=== PATIENT | female | born 1990 | race Caucasian/White ===

== ENCOUNTER 2019-07-08 19:56 | Emergency (ER) | payer OTHER ==
[2019-07-08 20:46] LABS: #Eosinphils 0.1 thou/uL (0.0-0.7); #Lymphocytes 1.8 thou/uL (1.20-3.40); #Monocytes 0.4 thou/uL (0.11-0.59); %Basophils 0.6 % (0.0-1.0); %Eosinophils 1.1 % (0.0-10.0); %Lymphocytes 24.8 % (21.0-51.0); %Monocytes 5.7 % (0.0-10.0); %Neutrophils 67.9 % (42.0-75.0); Hemoglobin 12.4 g/dL (12.0-16.0); Mean Corpuscular HGB CONC 35.6 g/dL (32.0-36.0); Mean Corpuscular Hemoglobin 31.8 pg (27.0-31.0); Mean Corpuscular Volume 89.4 fL (78.0-98.0); Platelet Count 185 thou/uL (130-400); RBC Distribution Width 13.6 % (11.5-14.5); Red Blood Cell (RBC) Count 3.88 mill/uL (4.20-5.40); White Blood Cell (WBC) Count 7.3 thou/uL (4.8-10.8)
[2019-07-08 21:05] LABS: ALT (SGPT) 15 U/L (8-55); AST (SGOT) 22 U/L (5-34); Albumin 3.6 g/dL (3.5-5.0); Alkaline Phosphatase 54 U/L (40-150); Anion Gap 12 mmol/L (10-20); BUN (Urea Nitrogen) 7 mg/dL (7.0-18.7); Bilirubin, Total 0.3 mg/dL (0.2-1.2); Calc. Creatinine Clearance 0 mL/min (70-130); Calcium 8.5 mg/dL (7.8-10.44); Carbon Dioxide 21 mmol/L (22-29); Chloride 108 mmol/L (98-107); Estimated GFR-MDRD Greater than 90; Globulin 2.9 g/dL (2.4-3.5); Glucose 83 mg/dL (70-105); Potassium 3.8 mmol/L (3.5-5.1); Protein, Total 6.5 g/dL (6.0-8.3); Sodium 137 mmol/L (136-145)
== END 2019-07-09 01:45 | disposition home or self-care (01) ==
LOC: ERS 19:56
DX: O99.512 Diseases of the respiratory system complicating pregnancy, second trimester (principal); R06.00 Dyspnea, unspecified; O99.342 Other mental disorders complicating pregnancy, second trimester; F41.9 Anxiety disorder, unspecified; Z3A.19 19 weeks gestation of pregnancy
CPT/HCPCS: 36415; 80053; 84484; 85025; 93005

== ENCOUNTER 2019-08-13 12:47 | Day surgery (SDC) | payer OTHER ==
[2019-08-13 13:14] LABS: #Eosinphils 0.1 thou/uL (0.0-0.7); #Lymphocytes 1.3 thou/uL (1.20-3.40); #Monocytes 0.3 thou/uL (0.11-0.59); #Neutrophils 7.2 thou/uL (1.40-6.50); %Basophils 0.2 % (0.0-1.0); %Eosinophils 1.1 % (0.0-10.0); %Monocytes 3.3 % (0.0-10.0); %Neutrophils 80.4 % (42.0-75.0); Hemoglobin 12.7 g/dL (12.0-16.0); Mean Corpuscular HGB CONC 35.7 g/dL (32.0-36.0); Mean Corpuscular Hemoglobin 32.5 pg (27.0-31.0); Mean Platelet Volume 7.4 fL (7.4-10.4); Platelet Count 175 thou/uL (130-400); White Blood Cell (WBC) Count 8.9 thou/uL (4.8-10.8)
[2019-08-13 13:36] LABS: ALT (SGPT) 18 U/L (8-55); AST (SGOT) 22 U/L (5-34); Albumin 3.4 g/dL (3.5-5.0); Alkaline Phosphatase 56 U/L (40-150); Anion Gap 9 mmol/L (10-20); BUN (Urea Nitrogen) 5 mg/dL (7.0-18.7); Bilirubin, Total 0.3 mg/dL (0.2-1.2); Calc. Creatinine Clearance 0 mL/min (70-130); Calcium 8.9 mg/dL (7.8-10.44); Carbon Dioxide 23 mmol/L (22-29); Chloride 105 mmol/L (98-107); Estimated GFR-MDRD Greater than 90; Glucose 100 mg/dL (70-105); Potassium 3.8 mmol/L (3.5-5.1); Protein, Total 6.4 g/dL (6.0-8.3); Sodium 133 mmol/L (136-145)
[2019-08-13 13:50] LABS: Bilirubin Negative (Negative); Blood, Urine Negative (Negative); Glucose, Urine (Dipstick) Negative (Negative); Leukocyte Negative (Negative); Nitrite Negative (Negative); Protein, Urine (Dipstick) Negative (Neg-Trace); Urobilinogen 0.2 mg/dL (Less than 2)
[2019-08-13 13:54] LABS: Clarity Clear (Clear)
[2019-08-13] MEDS ORDERED: hydrALAZINE 20 MG/ML VIAL SLOW IVP PRN (16:33)
--- NOTE | 2019-08-13 17:27 | PRG ---
DATE OF SERVICE: 08/13/2019 PRIMARY OB: Dr. Canales. CHIEF COMPLAINT: Syncope. HISTORY OF PRESENT ILLNESS: The patient is a 28-year-old, G5, P0 female with an intrauterine at 25 weeks' gestation, presenting to the emergency room after experiencing a syncopal episode at home while putting on her makeup. The patient reports that she was sitting in the bathroom, putting her makeup on in preparation for the day and suddenly felt lightheaded, getting tunnel vision and passed out before she had a chance of adjusting her physician. The patient reports that this happened at a previous time, able to sit down or lay down to avoid the syncope. The patient also reports that she has had nothing to eat since the evening before, except for a small glass of orange juice that she had just prior to the event. She hit her head. The patient was initially seen by the emergency room and evaluated with an EKG. Electrolytes and urinalysis all within normal limits. Once the patient was treated and they were satisfied for discharge, the patient was sent up here for monitoring. The patient denies any recent illness, fever, or current headache. The patient does report a history of headaches. Denies nausea, vomiting, or diarrhea. She reports improvement in her constipation. Denies any new rashes, hip problems, knee problems, or muscle weakness. Denies vaginal bleeding or leakage of fluid or urinary urgency or frequency. PAST MEDICAL HISTORY: Anxiety and rheumatoid arthritis in remission, off medications. PAST SURGICAL HISTORY: Eye surgery. SOCIAL HISTORY: Denies drug, alcohol, or tobacco use. ALLERGIES: NO KNOWN DRUG ALLERGIES. MEDICATIONS: vitamins. OB LABS: Unavailable at time of dictation. REVIEW OF SYSTEMS: Per HPI. PHYSICAL EXAMINATION: VITAL SIGNS: Blood pressure 109/63, heart rate of 85, and respiratory rate of 18. GENERAL: She appears to be in no acute distress. She is alert, oriented, cooperative, and pleasant to interact with. HEAD: Normocephalic and atraumatic. LUNGS: Clear to auscultation bilaterally. HEART: Has a regular rate and rhythm. ABDOMEN: Gravid and nontender. EXTREMITIES: Nontender and nonedematous. heart tracing shows the fetus with a baseline in the 140s with moderate long-term variability, appropriate for 25 weeks' gestation. Tocometer showing some irritability. It did not feel by the patient. LABORATORY DATA: Labs performed in the emergency room shows a white count of 8.9, hemoglobin 12.7, hematocrit 35.4, platelets of 175,000. Sodium 133, potassium 3.8, creatinine 0.65. LFTs; AST of 22 and ALT of 18. Urinalysis negative for protein, ketones, nitrites, and leukocyte esterase. ASSESSMENT AND PLAN: The patient is a 28-year-old, G5, P0 female with an intrauterine at 25 weeks in change, who had a syncopal episode today, likely related to a combination of , trimester and fasting status. No evidence at this time that it is cardiac in nature. The patient has been given precautions and advised to listen to warning signs and find a place to sit or lie down should she experience the symptoms again. The patient is leaving town by airplane tomorrow to a in [place]. The patient has been counseled the importance of frequent ambulation at least every couple of hours to minimize her risk for blood clots given the length of travel and also to be prepared to sit or lie down should she experience the symptoms again. The patient will not be alone while she is there visiting. The patient has been counseled to follow up with her primary OB as scheduled. Job ID: [id number]
== END 2019-08-13 15:45 | disposition home health service (06) ==
LOC: ERS 12:47 → L&D/OP 14:25
PROVIDERS: ATTEND Student in an Organized Health Care Education/Training Program
DX: O99.89 Other specified diseases and conditions complicating pregnancy, childbirth and the puerperium (principal); R55 Syncope and collapse; M06.9 Rheumatoid arthritis, unspecified; Z3A.25 25 weeks gestation of pregnancy
CPT/HCPCS: 36415; 80053; 81003; 85025; 93005; 99282

== ENCOUNTER 2019-11-03 12:31 | Day surgery (SDC) | payer OTHER ==
[2019-11-03 13:20] VITALS: BMI 25.9
--- NOTE | 2019-11-03 13:54 | PDOC.FPROB ---
FMR OB H&P: HPI - History of Present Illness Chief Complaint: CTX, vaginal pain/pressure Indentification: History of Present Illness: 29 yo at 36.2 here for vaginal pressure, hemorrhoids, CTX. Has a hx of hemorrhoids in which she has been taking a NV medication given by Dr. Canales. Today pain got worse, no bleeding. No LOF/VD/VB/Endorses FM. Has been having diarrhea, no blood. Primary Care Physician: Dr. Canales FMR OB H&P: Current - Care : 5 Para: [id number] Gestational age: 36.2 Due date: 11/29/19 - OB Labs Blood type: unknown RH: unknown Antibody Screen: unknown HIV: unknown RPR: unknown HepBsAg: unknown Quad screen: unknown Urine drug screen: not done Gonorrhea: unknown Chlamydia: unknown GBS: unknown FMR OB H&P: History - Past Medical History PMH: Cardiac arrhythmias Rheumatoid arthritis, in remission - OB History OB History: 1. 5 SABs , workup has been negative - WOMEN SPECIALIST History WOMEN SPECIALIST History: Denies - Surgical History Sx History: B/L strabismus Mole removal on stomach and shoulder - Social History Social History: Denies TAD - Family History Family History: SLE in aunt FMR OB H&P: Medications - Current Home Medications: Medication Instructions Recorded Confirmed Type Vitamin 1 tablet PO DAILY 11/03/19 11/03/19 History Allergies/Adverse Reactions: Allergies Allergy/AdvReac Type Severity Reaction Status Date / Time No Known Allergies Allergy Verified 08/13/19 16:32 FMR OB H&P: ROS - Review of Systems General: denies: fever/chills, weight/appetite/sleep changes Eyes: denies: vision changes, double vision ENT: denies: nasal congestion, rhinorrhea, frequent nose bleed Cardiovascular: denies: chest pain, palpitation, edema Gastrointestinal: reports: diarrhea. denies: abdominal pain, constipation, bright red blood Genitourinary (Female): reports: vaginal pressure. denies: vaginal discharge, vaginal pain, vaginal bleeding, contractions Musculoskeletal: reports: pain, stiffness Neurologic: denies: syncope, seizures, weakness Integumentary: denies: lesions, discoloration Breast: denies: bumps, masses Hematologic/Lymphatic: denies: prolonged or excessive bleeding Psychological: denies: depression, anxiety FMR OB H&P: Vital Signs - Heart Tones Baseline: 140 Variability: moderate Acceleration: present Deceleration: absent Category: category 1 [place] contractions every: none FMR OB H&P: Physical Exam - Physical Exam General: NAD, awake, alert and oriented HEENT: normocephalic and atraumatic, EOMI, MMM, conjunctiva clear Neck: supple, trachea midline Heart: RRR, normal S1/S2, no murmurs/rubs/gallops General: CTAB, no respiratory distress, good air movement Abdomen: soft, non-tender, bowel sound present Neurological: cranial nerves II through XII intact, sensation to pain,touch and proprioception grossly normal Skin: no rash, capillary refill <2 seconds Lymphatic: no unusual bruising or bleeding, no purpura Psychiatric: intact recent and remote memory, good judgement and insight, normal mood and affect - Pelvic Exam Vulva: normal hair distribution Deviation from normal: multiple external hemorrhoids, non thrombosed SVE: FMR OB H&P: A/P - Problem List (1) Hemorrhoid Status: Acute Code(s): K64.9 - UNSPECIFIED HEMORRHOIDS (2) Status: Acute Disposition: 1. -FHT: reactive, reassuring, No CTX -SVE: -No signs of labor 2. External hemorrhoids -Likely cause of pain -Will try ice pack -Advised continuing using medication from Dr. Canales Discussion: Date/Time: 11/03/19 7234 This H&P was discussed with [] and [] who agree with the above documentation and plan. Addendum - Attending - Attending Attestation Date/Time: 11/03/19 3395 I personally evaluated the patient and discussed the management with Dr. Vega. I agree with the History, Examination, Assessment and Plan documented above.
[2019-11-03] MEDS ORDERED: hydrALAZINE 20 MG/ML VIAL SLOW IVP PRN (14:09)
--- NOTE | 2019-11-03 16:50 | PDOC.BPN ---
- Brief Progress Note Patient with no signs of labor Hemorrhoidal pain much improved with ice pack Gave return precautions Follow up with Dr. Canales Answered all questions
== END 2019-11-03 15:48 | disposition home or self-care (01) ==
LOC: L&D/OP 12:31
PROVIDERS: ATTEND Student in an Organized Health Care Education/Training Program
DX: O22.43 Hemorrhoids in pregnancy, third trimester (principal); O47.03 False labor before 37 completed weeks of gestation, third trimester; O99.89 Other specified diseases and conditions complicating pregnancy, childbirth and the puerperium; R10.2 Pelvic and perineal pain; Z3A.36 36 weeks gestation of pregnancy

== ENCOUNTER 2019-11-20 04:23 | Inpatient (IN) | payer OTHER ==
[2019-11-20] MEDS ORDERED: NS / Oxytocin 40 units/1000ml 1,000 ML IV PRN (04:37)
[2019-11-20] MEDS ORDERED: Ondansetron PF 4 MG/2 ML Vial IVP PRN ×3 (04:37→14:01)
[2019-11-20] MEDS ORDERED: Butorphanol Tartrate 1 MG/ML VIAL SLOW IVP PRN (04:37)
[2019-11-20] MEDS ORDERED: Lidocaine 1% (PF) 30 ML VIAL SC PRN (04:37)
[2019-11-20] MEDS ORDERED: HYDROcodone/Acetaminophen 5/325 mg Tablet PO PRN ×3 (04:37→14:01)
[2019-11-20] MEDS ORDERED: hydrALAZINE 20 MG/ML VIAL SLOW IVP PRN ×2 (04:37→14:01)
[2019-11-20] MEDS ORDERED: Ibuprofen 800 MG TAB PO PRN (04:37)
[2019-11-20] MEDS ORDERED: Promethazine HCl 25 MG/ML VIAL IM PRN ×3 (04:37→14:01)
--- NOTE | 2019-11-20 04:39 | PDOC.EVN ---
Event Note - Event Note Event Note: Direct admission to Dr Canales Orders placed by me
[2019-11-20] MEDS: Lactated Ringer's 1,000 ML IV SCH ×2 (04:45→07:05)
[2019-11-20] MEDS ORDERED: Penicillin G Potassium 5 MILL.UNITS in Sodium Chloride 0.9% 100 ML IVPB SCH (05:00)
[2019-11-20] MEDS ORDERED: Fentanyl 4 mcg/Bup 0.1% Cadd 100 ML ONE (05:02)
[2019-11-20 05:07] LABS: Mean Corpuscular HGB CONC 35.9 g/dL (32.0-36.0); Mean Corpuscular Hemoglobin 32.6 pg (27.0-31.0); Mean Corpuscular Volume 90.8 fL (78.0-98.0); Mean Platelet Volume 7.8 fL (7.4-10.4); Platelet Count 191 thou/uL (130-400); RBC Distribution Width 12.1 % (11.5-14.5); Red Blood Cell (RBC) Count 4.31 mill/uL (4.20-5.40)
[2019-11-20 05:49] LABS: Syphilis Antibody Nonreactive (Nonreactive); Syphilis Antibody Index 0.05 S/CO (<1.00 Non-Reactive)
[2019-11-20 05:50] LABS: HBSAg Index 0.17 S/CO (0-0.99); HIV (1/2) Antibody/Antigen Non-Reactive (NonReactive); HIV 1/2 INDEX 0.11 S/CO (<1.00); Hep B Surf Ag Non-Reactive S/CO (NonReactive)
[2019-11-20] MEDS ORDERED: Naloxone HCl 0.4 mg/ml Vial IVP PRN ×2 (06:11)
[2019-11-20] MEDS ORDERED: ePHEDrine/0.9% NaCl/PF SYRINGE 50 mg/10 ml SLOW IVP PRN (06:11)
[2019-11-20] MEDS ORDERED: diphenhydrAMINE 50 MG/ML VIAL IVP PRN (06:11)
[2019-11-20] MEDS ORDERED: Acetaminophen 325 MG TAB PO PRN (06:11)
[2019-11-20] MEDS ORDERED: Lactated Ringer's 500 ML IV PRN (06:11)
[2019-11-20] MEDS ORDERED: Communication Order-Pharmacy FS SCH (06:15)
[2019-11-20] MEDS ORDERED: Fentanyl 4 mcg/Bupivacaine 0.1% Cassette 100 ML EPIDURAL SCH (06:15)
[2019-11-20 06:50] VITALS: BMI 25.9
[2019-11-20] MEDS ORDERED: NS / Oxytocin 40 units/1000ml 1,000 ML ONE (07:28)
[2019-11-20] MEDS ORDERED: Lidocaine 1% (PF) 30 ML VIAL ONE (07:28)
[2019-11-20] MEDS ORDERED: Penicillin G 2.5 MILL.units 2.5 MILL.UNITS in Premix Bag 1 BAG IVPB SCH (09:00)
--- NOTE | 2019-11-20 11:44 | PDOC.LDHP ---
Labor and Delivery H&P Chief complaint: contractions HPI: 29yo at 38w5d by LMP here with painful contractions. +LOF. Clear. Good FM. Current gestational age (weeks): 38 Due date: 11/29/19 Dating criteria: last menstrual period Grav: 5 Para: 0 Current complications: none Abnormal US findings: No Past Medical History: migraine, eczema, hemorrhoids, HPV Current medications: pre-grace vitamins Previous surgical history: other (eye surgery) Allergies/Adverse Reactions: Allergies Allergy/AdvReac Type Severity Reaction Status Date / Time No Known Allergies Allergy Verified 11/20/19 06:50 Social history: none - Physical Exam Vital signs reviewed and normal: yes General: NAD Heart: RRR Lungs: CTAB Abdomen: gravid Extremeties: no edema FHT: category 2, variable decelerations [place] contractions every: 2-3min - Vaginal Exam cm dilated: 10 Effacement: 100% Station: 2+ - OB Labs Blood type: B RH: positive Antibody Screen: negative HIV: negative RPR: negative HEPSAg: negative 1 hour GCT: negative GBS: negative Urine drug screen: negative Rubella: immune - Assessment L&D Assessment: term patient in labor - Plan Plan: admit to L&D, labor augmentation if indicated, informed consent obtained, anesthesia consult for pain management
--- NOTE | 2019-11-20 11:47 | PDOC.OPDEL ---
OB Operative/Delivery Note Delivery Dr/Surgeon: Ally Assist: n/a Pre-Delivery Diagnosis: active labor Procedure/Post Delivery Dx: operative vaginal delivery (VE due to maternal exhaustion) Weeks gestation: 38 Anesthesia: epidural - Findings A Sex: female - 1 min: 7 - 5 min: 8 - Additional Findings/Plan Placenta delivered: spontaneous Repaired Obstetrical Laceration: 1st degree (and left labial repaired with 2-0 vicryl) Estimated blood loss: 50cc Compilations/Other Findings: with left knee congenital dislocation Post delivery plan: routine recovery
[2019-11-20 12:23] LABS: Actual Bicarbonate (HCO3a) 21.8 mEq/L (22-28); Analyzer IN Cardio OR; Base Excess (BEa) -7.9 mEq/L (-2.0 to +3.0)
[2019-11-20] MEDS ORDERED: Lanolin Ointment 7 GM TUBE TOP PRN (14:01)
[2019-11-20] MEDS ORDERED: Preparation H Ointment 28 GM TUBE PR PRN (14:01)
[2019-11-20] MEDS ORDERED: Adacel (T-DAP) 0.5 ML SYRINGE IM ONE (14:01)
[2019-11-20] MEDS ORDERED: NS / Oxytocin 40 units/1000ml 1,000 ML IV SCH (14:01)
[2019-11-20] MEDS ORDERED: diphenhydrAMINE 25 MG CAP PO PRN (14:01)
[2019-11-20] MEDS ORDERED: Milk Of Magnesia 30 ML UDCUP PO PRN (14:01)
[2019-11-20] MEDS ORDERED: Benzocaine-Menthol 82.5 ML CAN TOP PRN (14:01)
[2019-11-20] MEDS ORDERED: Bisacodyl 10 MG SUPP PR PRN (14:01)
[2019-11-20] MEDS ORDERED: Bupivacaine/Epinephrine 0.25% 30 ML VIAL ONE (16:25)
[2019-11-20] MEDS: Ibuprofen 800 MG TAB PO SCH ×2 (18:01→20:58)
[2019-11-20] MEDS: Ferrous Sulfate 325 MG TAB PO SCH (18:02)
[2019-11-20] MEDS: Docusate Calcium (SURFAK) 240 MG CAP PO SCH (20:58)
[2019-11-21] MEDS: Ibuprofen 800 MG TAB PO SCH ×3 (05:31→21:51)
--- NOTE | 2019-11-21 06:49 | PDOC.PP ---
Post Progress Note Post Day #: 1 PO intake tolerated: yes Flatus: yes Ambulation: yes Vital Signs (12 hours) Temp Pulse Resp BP Pulse Ox 11/21/19 00:00 98.2 F 73 17 106/57 L 11/20/19 20:00 100 11/20/19 19:30 98.1 F 84 17 106/64 100 Weight Weight 133 lb - Physical Examination General: NAD Respiratory: non-labored breathing Abdominal: no distention, appropriately TTP Fundus firm & at: umb Skin: no rash Neurological: no gross focal deficits Psychiatric: normal affect Result Diagrams: 11/20/19 04:48 Additional Labs: Post Labs Blood Type B POSITIVE 11/20/19 06:22 Hep Bs Antigen Non-Reactive S/CO (NonReactive) 11/20/19 04:48 - Assessment/Plan PPD1 s/p VAVD 2/2 maternal exhuastion VSSAF Doing well pain controlled hemorrhoids- sitz baths ice packs preparation H LC ordered Rh pos RImm Cont PP care, home tomorrow
[2019-11-21] MEDS: Ferrous Sulfate 325 MG TAB PO SCH ×2 (08:24→17:05)
[2019-11-21] MEDS: Docusate Calcium (SURFAK) 240 MG CAP PO SCH ×2 (08:58→20:34)
[2019-11-21] MEDS: Prenatal Vitamin 1 TAB PO SCH (08:58)
[2019-11-21] MEDS: HYDROcodone/Acetaminophen 5/325 mg Tablet PO PRN ×3 (10:25→20:35)
[2019-11-22] MEDS: Ibuprofen 800 MG TAB PO SCH ×2 (05:42→14:25)
[2019-11-22] MEDS: HYDROcodone/Acetaminophen 5/325 mg Tablet PO PRN ×2 (07:33→14:25)
--- NOTE | 2019-11-22 07:58 | PDOC.PP ---
Post Progress Note Post Day #: 2 PO intake tolerated: yes Flatus: yes Ambulation: yes Weight Weight 133 lb - Physical Examination General: NAD Respiratory: non-labored breathing Abdominal: no distention, appropriately TTP Fundus firm & at: umb-2 Skin: no rash Neurological: no gross focal deficits Psychiatric: normal affect Result Diagrams: 11/20/19 04:48 Additional Labs: Post Labs Blood Type B POSITIVE 11/20/19 06:22 Hep Bs Antigen Non-Reactive S/CO (NonReactive) 11/20/19 04:48
[2019-11-22 08:07] VITALS: BP 118/73; TEMP 98.7
[2019-11-22] MEDS: Prenatal Vitamin 1 TAB PO SCH (09:44)
[2019-11-22] MEDS: Docusate Calcium (SURFAK) 240 MG CAP PO SCH (09:44)
[2019-11-22] MEDS: Ferrous Sulfate 325 MG TAB PO SCH (09:45)
== END 2019-11-22 14:32 | disposition home or self-care (01) | DRG 806 ==
LOC: L&D/OP 04:23 → L&D 04:37 → 3SW 16:44
PROVIDERS: ADMIT Obstetrics & Gynecology; ATTEND Obstetrics & Gynecology
PROC: 10D07Z6 Extraction of Products of Conception, Vacuum, Via Natural or Artificial Opening (ICD-10-PCS; principal; 2019-11-20)
PROC: 0HQ9XZZ Repair Perineum Skin, External Approach (ICD-10-PCS; 2019-11-20)
DX: O76 Abnormality in fetal heart rate and rhythm complicating labor and delivery (principal); O22.43 Hemorrhoids in pregnancy, third trimester; Z37.0 Single live birth; Z3A.38 38 weeks gestation of pregnancy; O75.81 Maternal exhaustion complicating labor and delivery; O70.0 First degree perineal laceration during delivery
CPT/HCPCS: 36415; 51702; 82805; 85027; 86780; 86850; 86900; 86901; 87340; 87389; 99285; J2001